=== PATIENT | female | born 1985 | race Caucasian/White ===

== ENCOUNTER 2019-12-02 10:07 | Emergency (ER) | payer SELFPAY ==
[2019-12-02 11:05] LABS: #Basophils 0.1 thou/uL (0.0-0.2); #Eosinphils 0.4 thou/uL (0.0-0.7); #Lymphocytes 1.7 thou/uL (1.20-3.40); #Monocytes 0.3 thou/uL (0.11-0.59); #Neutrophils 6.1 thou/uL (1.40-6.50); %Basophils 1.1 % (0.0-1.0); %Lymphocytes 19.4 % (21.0-51.0); %Monocytes 3.8 % (0.0-10.0); %Neutrophils 70.7 % (42.0-75.0); Hemoglobin 14.4 g/dL (12.0-16.0); Mean Corpuscular HGB CONC 32.2 g/dL (32.0-36.0); Mean Corpuscular Hemoglobin 31.1 pg (27.0-31.0); Mean Corpuscular Volume 96.7 fL (78.0-98.0); Mean Platelet Volume 9.9 fL (7.4-10.4); Platelet Count 149 thou/uL (130-400); RBC Distribution Width 12.8 % (11.5-14.5); Red Blood Cell (RBC) Count 4.63 mill/uL (4.20-5.40); White Blood Cell (WBC) Count 8.7 thou/uL (4.8-10.8)
[2019-12-02 11:15] LABS: BHCG - Serum Negative (NEGATIVE); Pregs Control Background? CLEAR/WHITE (CLR/WHITE); Pregs Control Bar Appear? YES (CONTROL BAR)
[2019-12-02 11:16] LABS: Acetaminophen Less than 6.0 mcg/mL (10.0-30.0); Cocaine Metabolite Screen Not Detected (NotDetected); Methamphetamine Not Detected (NotDetected); Phencyclidine (PCP) Not Detected (NotDetected); Salicylate Less than 8.0 mg/dL (15.0-30.0); THC/Cannabinoid Screen Not Detected (NotDetected)
[2019-12-02 11:17] LABS: Amphetamine Not Detected (NotDetected); Barbiturates Screen Not Detected (NotDetected); Benzodiazepine Screen Not Detected (NotDetected); Medtox Control Line Valid? VALID (VALID); Methadone Not Detected (NotDetected); Opiate Screen Not Detected (NotDetected); Oxycodone Screen Not Detected (NotDetected); Tricyclic Screen Not Detected (NotDetected)
[2019-12-02 11:20] LABS: Bilirubin Negative (Negative); Blood, Urine Negative (Negative); Clarity Clear (Clear); Glucose, Urine (Dipstick) 250 mg/dL (Negative); Ketone, Urine Trace mg/dL (Negative); Leukocyte Negative (Negative); Nitrite Negative (Negative); Protein, Urine (Dipstick) Negative (Neg-Trace); Urobilinogen 0.2 mg/dL (Less than 2)
[2019-12-02 11:22] LABS: Base Excess-Venous 1.4 mmol/L (-2.0 to 3.0); Bicarbonate (HCO3v) 25.2 mmol/L (22.0-28.0); CO2 Tension (PvCO2) 36.5 mmHg (40.0-50.0); Calcium, Ionized 1.04 mmol/L (See Comments:); Chloride 105 mmol/L (98-107); Hemoglobin - Calc 16.9 g/dL (12.0-16.0); Potassium 3.8 mmol/L (3.5-5.1); Sodium 139 mmol/L (138-145); T. Carbon Dioxide 26.3 mmol/L (22.0-28.0); vO2 Saturation-calc 99.9 % (60.0-85.0)
[2019-12-02 11:23] LABS: Specific Gravity, Urine 1.006 (1.002-1.036)
[2019-12-02 11:26] LABS: Alcohol Less than 10 mg/dL (Less than 10)
[2019-12-02 11:29] LABS: ALT (SGPT) 57 U/L (8-55); AST (SGOT) 62 U/L (5-34); Albumin 4.3 g/dL (3.5-5.0); Alkaline Phosphatase 88 U/L (40-110); Anion Gap 16 mmol/L (10-20); BUN (Urea Nitrogen) 9 mg/dL (7.0-18.7); Bilirubin, Total 0.6 mg/dL (0.2-1.2); CK (CPK) 187 U/L (29-168); Calc. Creatinine Clearance 0 mL/min (70-130); Calcium 8.9 mg/dL (7.8-10.44); Carbon Dioxide 21 mmol/L (22-29); Chloride 103 mmol/L (98-107); Estimated GFR-MDRD 87; Globulin 2.9 g/dL (2.4-3.5); Glucose 271 mg/dL (70-105); Potassium 3.8 mmol/L (3.5-5.1); Protein, Total 7.2 g/dL (6.0-8.3); Sodium 136 mmol/L (136-145)
--- NOTE | 2019-12-02 11:40 | CT ---
CT BRAIN: Date: 12/02/2019 PROVIDED CLINICAL HISTORY: Altered mental status. FINDINGS: The ventricular system appears normal in size and morphology. There is no evidence for intracranial h emorrhage or mass effect. The extracranial soft tissues and osseous structures demonstrate an unremar kable CT appearance. IMPRESSION: No evidence for intracranial hemorrhage or mass effect. POS: [facility]
== END 2019-12-02 18:04 ==
LOC: EDBD 10:07 → MADERS 10:07
DX: F98.9 Unspecified behavioral and emotional disorders with onset usually occurring in childhood and adolescence (principal); E11.9 Type 2 diabetes mellitus without complications
CPT/HCPCS: 36415; 51701; 70450; 80053; 80306; 80307; 81003; 82330; 82550; 82803; 84443; 84703; 85025; 93005

== ENCOUNTER 2020-07-01 11:54 | Emergency (ER) | payer SELFPAY ==
[2020-07-01] MEDS ORDERED: Lidocaine 1% w/Epinephrine 1:100K 20 ML VIAL ONE (12:58)
== END 2020-07-01 13:37 | disposition home or self-care (01) ==
LOC: MADERS 11:54
DX: L02.31 Cutaneous abscess of buttock (principal); E11.9 Type 2 diabetes mellitus without complications; Z79.4 Long term (current) use of insulin; E03.9 Hypothyroidism, unspecified; Z79.899 Other long term (current) drug therapy
CPT/HCPCS: 10060

== ENCOUNTER 2020-07-03 11:33 | Emergency (ER) | payer SELFPAY | END 2020-07-03 13:28 | disposition home or self-care (01) | LOC: MADER/OP 11:33 → MADERS 13:28 | DX: Z48.817 Encounter for surgical aftercare following surgery on the skin and subcutaneous tissue (principal); E11.9 Type 2 diabetes mellitus without complications; E03.9 Hypothyroidism, unspecified; F17.210 Nicotine dependence, cigarettes, uncomplicated; Z79.4 Long term (current) use of insulin; Z79.899 Other long term (current) drug therapy | CPT/HCPCS: 99282 ==